=== PATIENT | male | born 1990 | race Caucasian/White ===

== ENCOUNTER 2018-05-11 00:22 | Emergency (ER) | payer SELFPAY ==
[2018-05-11] MEDS: HYDROCODONE/APAP (10/325) TAB PO (01:37)
== END 2018-05-11 03:15 | disposition home or self-care (01) ==
LOC: FTE 00:22
DX: S60.511A Abrasion of right hand, initial encounter (principal); W22.8XXA Striking against or struck by other objects, initial encounter; Y92.9 Unspecified place or not applicable
CPT/HCPCS: 73130; 73130-RT; 99283-25